=== PATIENT | female | born 1965 | race American Indian/Alaskan Native ===

== ENCOUNTER 2022-03-18 19:32 | Emergency (ER) | payer OTHER ==
[2022-03-18] MEDS ORDERED: cloNIDine 0.2 MG TAB PO ONE (20:42)
[2022-03-18 21:35] LABS: Basophils % (Auto) 0.6 % (0.0-1.8); Eosinophils # (Auto) 0.3 K/mm3 (0.0-0.4); Eosinophils % (Auto) 4.7 % (0.0-4.3); Hematocrit 41.4 % (30.3-42.9); Hemoglobin 14.1 gm/dl (10.1-14.3); Mean Corpuscular HGB Conc 34 % (30-34); Mean Corpuscular Volume 94 fl (79-97); Monocytes # (Auto) 0.5 K/mm3 (0.0-0.8); Monocytes % (Auto) 9.1 % (0.0-7.3); Platelet Count 225 K/mm3 (140-440); Red Cell Distribution Width 13.4 % (13.2-15.2)
[2022-03-18 21:46] LABS: Alanine Aminotransferase 27 units/L (7-56); Albumin 4.1 g/dL (3.9-5); BUN/Creatinine Ratio 16; Blood Urea Nitrogen 13 mg/dL (7-17); Calcium 9.1 mg/dL (8.4-10.2); Hemolysis Index 8
--- NOTE | 2022-03-18 21:49 | XRay Report ---
CHEST 2 VIEWS INDICATION / CLINICAL INFORMATION: Chest Pain. COMPARISON: None available. FINDINGS: SUPPORT DEVICES: None. HEART / MEDIASTINUM: No significant abnormality. LUNGS / PLEURA: No significant pulmonary abnormality. No significant pleural effusion. No pneumothora x. ADDITIONAL FINDINGS: No significant additional findings. IMPRESSION: 1. No acute abnormality of the chest. Signer Name: Bo Dewey MD Signed: 03/18/2022 9:45 PM Workstation Name: [id number]
[2022-03-18 21:56] LABS: INR 0.92 (0.87-1.13)
[2022-03-18 21:57] LABS: Partial Thromboplastin Time 30.2 Sec. (24.2-36.6)
[2022-03-19] MEDS ORDERED: KETOROLAC 10 MG TAB PO ONE (09:48)
[2022-03-19 10:01] VITALS: BP 146/83
--- NOTE | 2022-03-19 10:23 | Emergency Department Report ---
ED General Adult HPI - General Chief complaint: Chest Pain Stated complaint: CHEST AND NECK PAIN Time Seen by Provider: 03/19/22 08:55 Source: patient Mode of arrival: Ambulatory Limitations: No Limitations - History of Present Illness Initial comments: 56-year-old black female with no past medical history presents to the emergency department for evaluation of 2-day history of right-sided chest pain. She states that yesterday it felt like pain radiated to the back of her neck and she felt faint but did not pass out. She states that the faint feeling only lasted about 30 seconds. She denies shortness of breath, dizziness, vomiting, and diaphoresis. She states that she has had some intermittent nausea. Pain is to the right side only, nonradiating, 7 out of 10 at its worst, and worse with palpation and some movement. -: Gradual, days(s) (2) Location: chest (Right side only) Radiation: non-radiation Severity scale (0 -10): 7 Quality: stabbing Consistency: intermittent Worsens with: movement Associated Symptoms: chest pain, nausea/vomiting. denies: cough, diaphoresis, fever/chills, headaches, loss of appetite, malaise, rash, seizure, shortness of breath, syncope, weakness Treatments Prior to Arrival: none - Related Data Previous Rx's Medication Instructions Recorded Last Taken Type Naproxen [Naprosyn] 500 mg PO BID PRN #14 tab 03/19/22 Unknown Rx Allergies Allergy/AdvReac Type Severity Reaction Status Date / Time No Known Allergies Allergy Verified 03/18/22 20:41 ED Review of Systems ROS: Stated complaint: CHEST AND NECK PAIN Other details as noted in HPI Comment: All other systems reviewed and negative Constitutional: denies: chills, fever, malaise, weakness Eyes: denies: vision change ENT: denies: congestion Respiratory: denies: cough, shortness of breath, SOB with exertion, SOB at rest, stridor, wheezing Cardiovascular: chest pain. denies: palpitations, dyspnea on exertion, orthopnea, edema, syncope, paroxysmal nocturnal dyspnea Gastrointestinal: nausea. denies: abdominal pain, vomiting, diarrhea, hematemesis, melena, hematochezia Musculoskeletal: denies: back pain Skin: denies: rash, lesions Neurological: denies: headache, weakness ED Past Medical Hx - Medications Home Medications: Home Medications Medication Instructions Recorded Confirmed Last Taken Type Naproxen [Naprosyn] 500 mg PO BID PRN #14 tab 03/19/22 Unknown Rx ED Physical Exam - General Limitations: No Limitations General appearance: alert, in no apparent distress - Head Head exam: Present: atraumatic, normocephalic - Eye Eye exam: Present: normal appearance. Absent: scleral icterus, conjunctival injection, periorbital swelling, periorbital tenderness - ENT ENT exam: Present: normal exam - Neck Neck exam: Present: normal inspection, full ROM. Absent: tenderness, lymphadenopathy - Respiratory Respiratory exam: Present: normal lung sounds bilaterally, chest wall tenderness. Absent: respiratory distress, wheezes, rales, rhonchi, stridor - Cardiovascular Cardiovascular Exam: Present: regular rate, normal rhythm, normal heart sounds - GI/Abdominal GI/Abdominal exam: Present: soft, normal bowel sounds. Absent: distended, tenderness, guarding, rebound, rigid - Extremities Exam Extremities exam: Present: normal inspection, full ROM, normal capillary refill. Absent: pedal edema, joint swelling, calf tenderness - Back Exam Back exam: Present: normal inspection. Absent: CVA tenderness (R), CVA tendern ess (L), vertebral tenderness - Neurological Exam Neurological exam: Present: alert, oriented X3, CN II-XII intact, normal gait - Psychiatric Psychiatric exam: Present: normal affect, normal mood - Skin Skin exam: Present: warm, dry, intact, normal color ED Course Vital Signs 03/18/22 03/18/22 03/18/22 20:36 20:55 22:21 Temperature 98.1 F Pulse Rate 72 90 Respiratory 16 Rate Blood Pressure 197/117 Blood Pressure 197/117 150/74 [Left] O2 Sat by Pulse 98 Oximetry 03/19/22 10:00 Temperature 97.8 F Pulse Rate 69 Respiratory 18 Rate Blood Pressure Blood Pressure 146/83 [Left] O2 Sat by Pulse 99 Oximetry ED Medical Decision Making - Lab Data Result diagrams: 03/18/22 20:57 03/18/22 20:57 - EKG Data EKG shows normal: sinus rhythm Rate: normal - EKG Data Interpretation: no acute changes - Radiology Data Radiology results: report reviewed, image reviewed Chest x-ray: FINDINGS: SUPPORT DEVICES: None. HEART / MEDIASTINUM: No significant abnormality. LUNGS / PLEURA: No significant pulmonary abnormality. No significant pleural effusion. No pneumothorax. ADDITIONAL FINDINGS: No significant additional findings. IMPRESSION: 1. No acute abnormality of the chest. - Medical Decision Making 56-year-old black female with no past medical history presents to the emergency department for evaluation of 2-day history of right-sided chest pain. She states that yesterday it felt like pain radiated to the back of her neck and she felt faint but did not pass out. She states that the faint feeling only lasted about 30 seconds. She denies shortness of breath, dizziness, vomiting, and diaphoresis. She states that she has had some intermittent nausea. Pain is to the right side only, nonradiating, 7 out of 10 at its worst, and worse with palpation and some movement. Noted to have right-sided only chest wall tenderness on exam. EKG without any acute ischemic changes noted, troponin within normal limit, and chest x-ray without any acute abnormalities noted. Low suspicion for ACS. Patient treated with Toradol 10 mg x 1 while in the emergency department and will be discharged home with naproxen to take as needed for pain. She is advised to follow-up with cardiology or primary care provider for further evaluation and management. Patient was noted to have elevated bp on admission to ed that improved. She was advised to monitor and record bp and follow up with pcp for further evaluation and management. She is advised to return to the emergency department as needed. She verbalizes understanding of and agreement with plan of care. Critical care attestation.: If time is entered above; I have spent that time in minutes in the direct care of this critically ill patient, excluding procedure time. ED Disposition Clinical Impression: Chest wall pain Disposition: 01 HOME / SELF CARE / HOMELESS Is pt being admited?: No Does the pt Need Aspirin: No Condition: Stable Instructions: Chest Wall Pain, [id number], Nonspecific Chest Pain, Adult Additional Instructions: Take medications as prescribed. Follow-up with primary care provider or correction officer head for further evaluation and management. Return to the emergency department as needed. Prescriptions: Naproxen [Naprosyn] 500 mg PO BID PRN #14 tab PRN Reason: Pain, Moderate (4-6) Referrals: BRIDGER CHEEMA MD [Primary Care Provider] - 3-5 Days Forms: Work/School Release Form(ED) Time of Disposition: 10:23
--- NOTE | 2022-03-20 13:39 | Electrocardiograph Report ---
[facility] Test Date: 2022-03-18 Test Time: 20:48:23 Pat Name: MAHAD OBRIEN Department: Room: Gender: F Showroom Consultant: GEREMIAS : 1965 Requested By: ED DOC Order Number: [id number] Reading MD: Mitra Degroot Measurements Intervals Edgar Rate: 75 P: -36 KS: 134 QRS: 25 QRSD: 94 T: -13 QT: 374 QTc: 419 Interpretive Statements Ectopic atrial rhythm Nonspecific T abnormalities, anterior leads No previous ECG available for comparison Electronically Signed On 03-20-2022 13:38:49 EDT by Mitra Degroot
== END 2022-03-19 10:38 | disposition home or self-care (01) ==
LOC: ED 19:32
DX: R07.9 Chest pain, unspecified (principal); R07.89 Other chest pain
CPT/HCPCS: 36415; 71046; 80053; 84484; 85025; 85610; 85730; 93005; 99284